=== PATIENT | female | born 1940 | race Caucasian/White ===

== ENCOUNTER 2017-05-09 11:34 | Outpatient (CLI) | payer MEDICARE, OTHER ==
--- NOTE | 2017-05-09 18:41 | Diagnostic Imaging Report ---
BRITTON SHEA [facility] [address] [facility] [address] [place], [place]. [address] Report Submission Date: May 09, 2017 12:19:20 PM CDT Patient Study Name: DEA DEE Date: May 09, 2017 11:40:37 AM CDT Modality Type: CR Gender: F Description: CHEST : 36 Institution: [facility] Physician: BRITTON SHEA Examination: PA and lateral chest. History: Evaluate lung fitzgerald. Comparison exam: None provided Findings: PA lateral chest demonstrate a normal cardiac and mediastinal silhouette. Vascular calcification involving the aortic arch. Mild perihilar haziness. No blunting of the costophrenic margins. Osseous structures are appropriate for age. Impression: Mild perihilar haziness/infiltrate. No effusion. Electronically signed on May 09, 2017 12:19:20 PM CDT by: Jalen ALMONTE
== END 2017-05-09 11:35 ==
LOC: RAD 11:34
PROVIDERS: ATTEND Family Medicine
DX: J44.9 Chronic obstructive pulmonary disease, unspecified (principal); R06.09 Other forms of dyspnea
CPT/HCPCS: 71020

== ENCOUNTER 2017-09-18 11:50 | Outpatient (CLI) | payer MEDICARE, OTHER ==
[2017-09-18 12:24] LABS: EOSINOPHILS % 1.6 % (0.0-6.8); MEAN CORPUSCULAR HEMOGLOBIN 32.2 pg (28.0-34.0); MEAN CORPUSCULAR VOLUME 98.2 fl (80.0-100.0); MONOCYTES % 5.4 % (0.0-11.0); NEUTROPHILS # 7.1 # k/uL (1.4-7.7)
[2017-09-18 12:41] LABS: eGFR (African) > 60; eGFR (Non-African) > 60
--- NOTE | 2017-09-18 13:42 | Diagnostic Imaging Report ---
MELANIE GARZA [facility] [address] [facility] [address] [address] Report Submission Date: Sep 18, 2017 12:44:00 PM PUMPER GAGER Patient Study Name: DEA DEE Date: Sep 18, 2017 12:27:48 PM PUMPER GAGER Modality Type: CR Gender: F Description: CHEST : 36 Institution: [facility] Physician: MELANIE GARZA Examination: PA and lateral chest. History: Evaluate lung fitzgerald. Comparison exam: 09 May 2017 Findings: PA lateral chest demonstrate a prominent cardiac and mediastinal silhouette. Vascular calcification involving the aortic arch. Mild perihilar haziness. Left lower lung linear density. Mild blunting of the costophrenic margins. Osseous structures are appropriate for age. Impression: Perihilar haziness/infiltrates with likely small effusions. Electronically signed on Sep 18, 2017 12:44:00 PM PUMPER GAGER by: Jalen ALMONTE
== END 2017-09-18 11:52 ==
LOC: RT 11:50
PROVIDERS: ATTEND Physician Assistant
DX: R07.9 Chest pain, unspecified (principal); R32 Unspecified urinary incontinence; R05 Cough
CPT/HCPCS: 36415; 71020; 80053; 84484; 85025; 87086; 87186

== ENCOUNTER 2017-10-30 14:15 | Outpatient (CLI) | payer MEDICARE, OTHER | END 2017-10-30 14:30 | LOC: CARD 14:15 | PROVIDERS: ATTEND Internal Medicine Cardiovascular Disease | DX: I25.5 Ischemic cardiomyopathy (principal); I71.4 Abdominal aortic aneurysm, without rupture; J44.9 Chronic obstructive pulmonary disease, unspecified; Z72.0 Tobacco use | CPT/HCPCS: G0463 ==

== ENCOUNTER 2017-11-09 14:00 | Outpatient (CLI) | payer MEDICARE, OTHER ==
--- NOTE | 2017-11-23 10:02 | CONSULTATION REPORT ---
PRIMARY CARE PROVIDER: Dr. Delmer Leonard CONSULTING PHYSICIAN: Marija Marie MD CHIEF COMPLAINT: "My primary sent me here for my breathing." SIGNIFICANT PROBLEM LIST: 1. Ischemic cardiomyopathy. 2. Non-ST elevation myocardial infarction, 09/18/2017. Status post PCI to the LAD. 3. Chronic obstructive pulmonary disease (COPD). 4. Abdominal aortic aneurysm, 5.2 cm. 5. Hysterectomy. 6. Partial colectomy. 7. Current tobacco use. HISTORY OF PRESENT ILLNESS: On September 18, 2017, patient went to [facility] complaining of shortness of breath and intermittent chest pain. A troponin was checked and it was elevated and the patient was sent to the [facility]. They determined that she had a non-STEMI myocardial infarction. Her cardiac catheterization revealed: LAD with 80% occlusion, RCA with 100% occlusion, left circumflex with 60% occlusion with an LVEF of 20%. Patient declined to have a CABG and instead had a PCI to the LAD. She states that her energy level definitely improved after the stent was placed, but she continues to have dyspnea on exertion, particularly going up stairs. The patient did see Cardiology on October 25, 2017, where spironolactone was initiated; however, the patient had symptomatic hypotension and the spironolactone dose was cut in half. She states she was given oxygen to use at home on discharge from [facility], but she rarely uses it. She says her oxygen saturation usually runs between 87% and 92%. She does use inhalers. She does not have a home nebulizer and there is no BiPAP or CPAP at the home. She denies chest pain. There is no PND. No edema. No GERD. She does have trouble with her sinuses and postnasal drip. She has never been on prednisone or antibiotics for her lungs. She denies hemoptysis. Her weight is stable. Appetite is good. Energy level is good. She does have a cough that at times she brings up clear to white sputum. She denies any fever, chills, or sweats. She has no past history of asthma, pneumonia, or DVTs. She is a current tobacco user. Currently, she is down to 3 cigarettes a day. She had been smoking 1 pack of cigarettes per day for the last 50 years. ALLERGIES: 1. Epinephrine. 2. Equine products. MEDICATIONS: 1. Advair 250/50 b.i.d. 2. Spiriva 18 mcg daily. 3. ProAir every 4 to 6 hours p.r.n. 4. Plavix 75 mg daily. 5. Aspirin 81 mg daily. 6. Metoprolol 25 mg daily. 7. Lisinopril 5 mg daily. 8. Spironolactone 12.5 mg daily. 9. Atorvastatin 40 mg daily. SOCIAL HISTORY: Her granddaughter and her fiance and the granddaughter's 5-year-old child all live with the patient. According to the patient, the granddaughter has significant bipolar disease and is on medication and also sees a psychiatrist. FAMILY HISTORY: 1. Cancer. 2. Heart disease. 3. Lung disease. REVIEW OF SYSTEMS: Please see HPI for pertinent review of systems. Please also see [facility] patient intake record. PHYSICAL EXAMINATION: GENERAL: She is a well-developed thin female speaking in full sentences in no acute distress. VITAL SIGNS: BP: 136/75, P: 87, R: 20, T: 97.7, room air oxygen saturation was 87%. Height: 5 feet 5 inches. Weight: 125 pounds. BMI: 20.8. HEENT: Pupils are equal and reactive to light. Oropharynx is clear. No thrush. No erythema. NECK: Supple. No adenopathy. No JVD. LUNGS: Equal bilateral excursion of air. Clear. No wheezes, rhonchi, or crackles. CARDIAC: Rate and rhythm are regular. S1, S2, no S3 or S4. No murmur, rubs , or gallops. ABDOMEN: Soft and nontender. Positive bowel sounds. No organomegaly. EXTREMITIES: No edema, cyanosis, or clubbing. NEUROLOGIC: Alert and oriented x3. Grossly intact neurologic exam. IMAGING: All imaging was independently reviewed by me personally. 1. Chest x-ray on September 18, 2017. Unable to directly visualize the film due to malfunction of the system. The report states perihilar haziness. Possible small effusions. 2. Chest x-ray on May 09, 2017. Cephalization. Lingular infiltrates. A very flat diaphragm. LABORATORIES: 1. CBC on September 18, 2017. Hemoglobin 16, hematocrit 48, white blood cell count 9, platelets 294,000. 2. Chemistry on September 18, 2017. Sodium 138, potassium 4.5, chloride 96, bicarbonate 29, BUN 12, creatinine 0.7, glucose 102. 3. LFTs on September 18, 2017. They are all within normal limits. DIAGNOSTIC STUDIES: A 6-minute walk test on November 09, 2017. Resting oxygen saturation was 94% on room air, heart rate was 73. Patient was only able to walk for 3 minutes. Her oxygen saturation went down to 86%. Pulse went to 104. She was short of breath and unable to complete the walk. ASSESSMENT AND PLAN: PROBLEM #1: Chronic obstructive pulmonary disease (COPD). Patient is a current smoker and her chest x-ray is also very consistent with COPD. I mentioned that I would like to perform a PFT and she asked not to do it. She states she saw her do them and they were very difficult. PLAN: 1. Continue Advair 250/50 b.i.d. 2. Continue Spiriva 18 mcg daily. 3. Continue albuterol MDI every 2 to 3 hours p.r.n. pain. 4. We will obtain a chest CT scan done at [facility] on September 18, 2017, to assess the degree of emphysema in her lung parenchyma. PROBLEM #2: Hypoxemia. This likely has been going on for quite some time. Please note that her hemoglobin is 16 and her hematocrit is 48. I have taken a significant amount of time to explain to the patient how important it is for her to have oxygenation not only for her lungs but significantly because of her cardiac disease. PLAN: 1. Home oxygen at 2 liters per nasal cannula for 24 hours 7 days a week. 2. Return to clinic in 2 weeks' time. PROBLEM #3: Current tobacco use. Patient states that since she had her heart attack in August, she has dramatically reduced the amount of tobacco use now to approximately 3 cigarettes per day. I have explained to her the affects of tobacco not only on her lungs but on her heart and have encouraged her to try to totally quit. PLAN: Continue to encourage patient to quit using tobacco. cc: Dr. Delmer ALMONTE
== END 2017-11-09 14:02 ==
LOC: PULMONARY 14:00
PROVIDERS: ATTEND Internal Medicine Pulmonary Disease
DX: J44.9 Chronic obstructive pulmonary disease, unspecified (principal); R09.02 Hypoxemia; I42.9 Cardiomyopathy, unspecified; I71.4 Abdominal aortic aneurysm, without rupture; Z72.0 Tobacco use; I21.4 Non-ST elevation (NSTEMI) myocardial infarction
CPT/HCPCS: 99214; G0463

== ENCOUNTER 2017-11-30 11:10 | Outpatient (CLI) | payer MEDICARE, OTHER ==
--- NOTE | 2017-12-07 14:58 | OP Clinic Progress Note ---
PRIMARY CARE PHYSICIAN: Dr. Delmer Leonard CHIEF COMPLAINT: "I am here for my breathing and COPD." SIGNIFICANT PROBLEM LIST: 1. Chronic obstructive pulmonary disease (COPD). 2. Ischemic cardiomyopathy. 3. Non-ST elevation myocardial infarction on September 18, 2017, status post percutaneous coronary intervention (PCI) to left anterior descending (LAD) artery. 4. Abdominal aortic aneurysm 5.2 cm. 5. Hysterectomy. 6. Partial colectomy. 7. Left retinal detachment: Status post pneumoretinopexy on August 17, 2010. HISTORY OF PRESENT ILLNESS: Patient states overall she is doing okay. She is using her oxygen every night all night and then at times during the day. She does complain that her nose gets dry with the oxygen. When asked if she using humidification, she states she does not know. She also notes that her environmental allergies are worse and this may also be contributing to the problem. She is taking her inhalers regularly along with the rest of her medication. She denies any minimal cough. No sputum production. She continues to smoke approximately 3 cigarettes a day. She will be undergoing another ultrasound in December to evaluate her aortic abdominal aneurysm. ALLERGIES: 1. Epinephrine. 2. Equine products. PRESENT MEDICATIONS: 1. Advair 250/50 mcg b.i.d. 2. Spiriva 18 mcg capsules, 1 inhalation daily. 3. Albuterol every 4 to 6 hours p.r.n. inhalation. 4. Plavix 75 mg daily. 5. Aspirin 81 mg daily. 6. Metoprolol 25 mg daily. 7. Lisinopril 5 mg daily. 8. Spironolactone 12.5 mg daily. 9. Atorvastatin 40 mg daily. PHYSICAL EXAMINATION: VITAL SIGNS: BP: 112/71, P: 84, R: 22, T: 96.3. Oxygen saturation on room air was 88%. BMI: 20.8 GENERAL: This is a well-developed thin female in no acute distress speaking in full sentences. HEENT: Pupils are equal and reactive to light. Oropharynx is clear. No thrush. No erythema. NECK: Supple. No adenopathy. LUNGS: Bilaterally clear to auscultation. No wheezes. No rhonchi. CARDIAC: Rate and rhythm are regular. No murmur, rubs, or gallops. ABDOMEN: Soft and nontender. EXTREMITIES: No cyanosis, clubbing, or edema. NEUROLOGIC: Alert and oriented x3. Grossly nonfocal. IMAGING: All imaging independently reviewed by me personally. 1. Chest CT scan on September 18, 2017, from [facility]. Significant emphysema. Bronchiectasis, right upper lobe and left upper lobe. ASSESSMENT AND PLAN: PROBLEM #1: Chronic obstructive pulmonary disease (COPD). Patient is continuing to smoke, although at a level much less. She is using her oxygen more, although not throughout the day. PLAN: 1. Continue Advair 250/50 mcg b.i.d. 2. Continue Spiriva 18 mcg daily. 3. Continue albuterol MDI every 2 to 3 hours p.r.n. shortness of breath. 4. Patient will contact her DME to find out if her set up is humidified. PROBLEM #2: Hypoxemia. Again, we discussed the hypoxemia and how it affects not only her lungs, but her cardiac status and that it is concerning to me. We reviewed the importance of using her oxygen as much as possible all night and for significant time periods during the day. PLAN: 1. Home oxygen at 2 liters per nasal cannula for 24 hours, 7 days per week. 2. Patient to contact her DME to see if her system is humidified and whether it can be humidified. PROBLEM #3: Current tobacco use. Patient states she continues at approximately 2 to 3 cigarettes a day. PLAN: More encouragement so she can totally stop. PROBLEM #4: Environmental allergies causing sinus congestion. PLAN: Patient to use Flonase which she already has at home. cc: Dr. Delmer ALMONTE
== END 2017-11-30 11:11 ==
LOC: PULMONARY 11:10
PROVIDERS: ATTEND Internal Medicine Pulmonary Disease
DX: J44.9 Chronic obstructive pulmonary disease, unspecified (principal); R09.02 Hypoxemia; Z72.0 Tobacco use; J30.2 Other seasonal allergic rhinitis; R09.81 Nasal congestion; I42.9 Cardiomyopathy, unspecified; I21.9 Acute myocardial infarction, unspecified; I71.4 Abdominal aortic aneurysm, without rupture; Z90.710 Acquired absence of both cervix and uterus; Z90.49 Acquired absence of other specified parts of digestive tract; H33.009 Unspecified retinal detachment with retinal break, unspecified eye
CPT/HCPCS: 99214; G0463

== ENCOUNTER 2017-12-25 13:13 | Outpatient (CLI) | payer MEDICARE, OTHER | END 2017-12-25 13:15 | LOC: CARD 13:13 | PROVIDERS: ATTEND Internal Medicine Cardiovascular Disease | DX: I25.5 Ischemic cardiomyopathy (principal); I71.4 Abdominal aortic aneurysm, without rupture; J44.9 Chronic obstructive pulmonary disease, unspecified; Z72.0 Tobacco use; Z79.899 Other long term (current) drug therapy; I25.2 Old myocardial infarction | CPT/HCPCS: 93307; G0463 ==

== ENCOUNTER 2018-01-24 09:48 | Outpatient (CLI) | payer MEDICARE, OTHER ==
[2018-01-24 10:30] LABS: eGFR (African) > 60; eGFR (Non-African) > 60
== END 2018-01-24 09:50 ==
LOC: LAB 09:48
PROVIDERS: ATTEND Internal Medicine Cardiovascular Disease
DX: I71.4 Abdominal aortic aneurysm, without rupture (principal); Z95.818 Presence of other cardiac implants and grafts
CPT/HCPCS: 36415; 80048